=== PATIENT | male | born 1970 | race Caucasian/White ===

== ENCOUNTER 2016-12-21 18:49 | Emergency (ER) | payer MEDICAID ==
[~2016-12-21] VITALS: Ht 170.2 cm; Wt 84.0 kg
[2016-12-21] MEDS ORDERED: PROPARACAINE HCL 0.5% 15 ML OPHTHALMIC SOLUTION OD ONE (19:15)
[2016-12-21] MEDS ORDERED: HYDROCODONE/ACETAMINOPHEN 5-325 MG TABLET PO ONE (19:30)
[2016-12-21 21:01] VITALS: BP 132/79
== END 2016-12-21 21:02 | disposition home or self-care (01) ==
LOC: EMS 18:51
DX: T15.01XA Foreign body in cornea, right eye, initial encounter (principal); S05.01XA Injury of conjunctiva and corneal abrasion without foreign body, right eye, initial encounter; X58.XXXA Exposure to other specified factors, initial encounter; Y93.89 Activity, other specified; Y92.89 Other specified places as the place of occurrence of the external cause; Y99.9 Unspecified external cause status
CPT/HCPCS: 65220; 99284